=== PATIENT | male | born 1980 | race Caucasian/White ===

== ENCOUNTER 2021-04-17 09:27 | Outpatient (CLI) | payer OTHER | END 2021-04-17 09:28 | disposition home or self-care (01) | LOC: CSHLAB 09:27 | PROVIDERS: ATTEND Otolaryngology Plastic Surgery within the Head & Neck | DX: Z01.818 Encounter for other preprocedural examination (principal); R94.31 Abnormal electrocardiogram [ECG] [EKG] | CPT/HCPCS: 93005; 93010 ==

== ENCOUNTER 2021-04-22 09:05 | Observation (INO) | payer OTHER ==
[2021-04-16 16:37] VITALS: BMI 41.3
[2021-04-22] MEDS ORDERED: Lidocaine 1% MPF 2 ML VIAL ONE (10:35)
[2021-04-22] MEDS ORDERED: Oxymetazoline HCl 0.05% ( 15 ML ) ONE (10:50)
[2021-04-22] MEDS ORDERED: Acetaminophen 325 MG TAB PO PRN (11:58)
[2021-04-22] MEDS ORDERED: Ondansetron PF 4 MG/2 ML Vial IVP PRN (11:58)
[2021-04-22] MEDS ORDERED: D5 1/2 NS 1,000 ML IV SCH (12:00)
[2021-04-22] MEDS ORDERED: Acetaminophen W/ Codeine 5 ML UDCUP PO PRN (12:02)
[2021-04-22] MEDS ORDERED: SUGAMMADEX SODIUM 200 MG/2 ML VIAL ONE (12:04)
[2021-04-22] MEDS ORDERED: Midazolam HCl 2 mg/2 ml Vial ONE (12:05)
[2021-04-22] MEDS ORDERED: Ondansetron PF 4 MG/2 ML Vial ONE (12:05)
[2021-04-22] MEDS ORDERED: Rocuronium Bromide 10 MG/ML (10ML VIAL) ONE ×2 (12:05→13:52)
[2021-04-22] MEDS ORDERED: PROPOFOL 20 ML ONE ×3 (12:05→13:26)
[2021-04-22] MEDS ORDERED: Dexamethasone 20 MG/5 ML VIAL ONE (12:05)
[2021-04-22] MEDS ORDERED: Lidocaine 1% PF 5 ML VIAL ONE (12:05)
[2021-04-22] MEDS ORDERED: Fentanyl 250 MCG/5 ML VIAL ONE (12:05)
[2021-04-22] MEDS ORDERED: Propofol 1,000 MG/100 ML VIAL IV ONE (13:40)
[2021-04-22] MEDS ORDERED: Rocuronium Bromide 50 MG/5 ML VIAL IVP SCH (14:30)
[2021-04-22] MEDS ORDERED: fentaNYL Citrate-0.9 % NaCl/PF 100 ML IVPB SCH (14:30)
[2021-04-22 14:43] LABS: Actual Bicarbonate (HCO3a) 27.4 mEq/L (22-28); Base Excess (BEa) -2.3 mEq/L (-2.0 to +3.0); CO2 Tension 68.9 mmHg (35.0-45.0); Calcium, Ionized (arterial) 1.18 mmol/L (1.12-1.30); Carboxyhemoglobin (COHb) 0.4 gm% (0.0-3.0); O2 Tension (PaO2), arterial 75.7 mmHg (80.0-100.0); Puncture Site LRA; pH, Arterial 7.22 (7.35-7.45)
[2021-04-22] MEDS ORDERED: Rocuronium Bromide 10 MG/ML (10ML VIAL) IVP SCH (14:45)
[2021-04-22 14:46] LABS: ALV-art Gradient 551.175 mmHg (0-20)
[2021-04-22] MEDS: Propofol 1,000 MG/100 ML VIAL IV PRN ×4 (15:57→22:31)
[2021-04-22 16:05] LABS: Actual Bicarbonate (HCO3a) 23.6 mEq/L (22-28); Base Excess (BEa) -2.2 mEq/L (-2.0 to +3.0); CO2 Tension 44.4 mmHg (35.0-45.0); Calcium, Ionized (arterial) 1.16 mmol/L (1.12-1.30); Carboxyhemoglobin (COHb) 0.5 gm% (0.0-3.0); Hemoglobin (Hb) 15.3 g/dL (14.0-18.0); O2 Tension (PaO2), arterial 82.6 mmHg (80.0-100.0); Puncture Site LRA; pH, Arterial 7.34 (7.35-7.45)
[2021-04-22] MEDS ORDERED: Furosemide 40 MG/4 ML VIAL SLOW IVP SCH (16:30)
[2021-04-22 16:46] LABS: SARS-CoV-2 NAA Rapid Test DETECTED (NotDetected)
[2021-04-22] MEDS ORDERED: Lorazepam 2 MG/ML VIAL SLOW IVP PRN (17:17)
[2021-04-22] MEDS ORDERED: Lorazepam 2 MG/ML VIAL ONE (17:23)
[2021-04-22] MEDS ORDERED: MIDAZOLAM IVPB PRN (18:30)
[2021-04-22] MEDS ORDERED: SODIUM CHLORIDE 0.9% IVPB PRN (18:30)
[2021-04-22] MEDS: Dexamethasone 20 MG/5 ML VIAL SLOW IVP SCH (19:45)
[2021-04-22] MEDS: Furosemide 40 MG/4 ML VIAL SLOW IVP SCH (19:47)
[2021-04-23] MEDS: Propofol 1,000 MG/100 ML VIAL IV PRN ×4 (00:51→07:59)
[2021-04-23 06:49] LABS: #Monocytes 0.6 10x3/uL (0.0-1.1); #Neutrophils 16.3 10x3/uL (1.5-8.4); %Basophils 0.1 % (0.0-2.0); %Monocytes 3.5 % (0.0-10.0); Hemoglobin 14.2 g/dL (13.5-17.5); Mean Corpuscular HGB CONC 31.3 g/dL (32.0-36.0); Mean Corpuscular Hemoglobin 26.2 pg (27.0-33.0); Mean Corpuscular Volume 83.4 fl (81.2-95.1); Platelet Count 243 10x3/uL (150-450); RBC Distribution Width 16.1 % (11.5-14.5); Red Blood Cell (RBC) Count 5.43 10x6/uL (4.32-5.72); White Blood Cell (WBC) Count 18.1 10x3/uL (3.5-10.5)
[2021-04-23 06:56] LABS: ALT (SGPT) 33 U/L (8-55); AST (SGOT) 24 U/L (5-34); Albumin 3.9 g/dL (3.5-5.0); Alkaline Phosphatase 42 U/L (40-110); Anion Gap 17 mmol/L (10-20); BUN (Urea Nitrogen) 20 mg/dL (8.9-20.6); Bilirubin, Total 0.7 mg/dL (0.2-1.2); Calc. Creatinine Clearance 129 mL/min (70-130); Calcium 8.6 mg/dL (7.8-10.44); Carbon Dioxide 23 mmol/L (22-29); Chloride 103 mmol/L (98-107); Glucose 162 mg/dL (70-105); Magnesium 2.3 mg/dL (1.6-2.6); Phosphorus 4.6 mg/dL (2.3-4.7); Potassium 3.9 mmol/L (3.5-5.1); Protein, Total 6.9 g/dL (6.0-8.3); Sodium 139 mmol/L (136-145)
[2021-04-23 07:48] LABS: Actual Bicarbonate (HCO3a) 25.1 mEq/L (22-28); Base Excess (BEa) 0.2 mEq/L (-2.0 to +3.0); CO2 Tension 41.6 mmHg (35.0-45.0); Carboxyhemoglobin (COHb) 0.5 gm% (0.0-3.0); O2 Tension (PaO2), arterial 81.9 mmHg (80.0-100.0); Potassium - ABG Lab 3.8 mmol/L (3.70-5.30); Puncture Site LRA
[2021-04-23] MEDS: Dexamethasone 20 MG/5 ML VIAL SLOW IVP SCH ×2 (07:59→19:41)
[2021-04-23] MEDS: Furosemide 40 MG/4 ML VIAL SLOW IVP SCH (08:00)
[2021-04-23] MEDS ORDERED: Dexmedetomidine In 0.9 % NaCl 100 ML IVPB SCH (08:15)
[2021-04-23] MEDS: Pantoprazole 40 MG VIAL IVP SCH (09:12)
[2021-04-23] MEDS: Heparin 5,000 UNITS/ML VIAL SC SCH ×3 (09:12→19:41)
[2021-04-23] MEDS: Ipratropium/Albuterol Sulfate 4 GM AER IH SCH ×3 (14:32→22:55)
[2021-04-24 01:08] VITALS: TEMP 98.2
[2021-04-24] MEDS: Ipratropium/Albuterol Sulfate 4 GM AER IH SCH ×2 (02:52→07:12)
[2021-04-24 04:36] VITALS: BP 150/85
[2021-04-24 07:26] LABS: #Monocytes 0.8 10x3/uL (0.0-1.1); %Basophils 0.1 % (0.0-2.0); %Lymphocytes 11.5 % (18.0-47.0); %Monocytes 5.2 % (0.0-10.0); %Neutrophils 82.6 % (40.0-75.0); Hemoglobin 13.9 g/dL (13.5-17.5); Mean Corpuscular HGB CONC 31.4 g/dL (32.0-36.0); Mean Corpuscular Hemoglobin 26.3 pg (27.0-33.0); Mean Corpuscular Volume 83.9 fl (81.2-95.1); Mean Platelet Volume 10.9 fl (7.4-10.4); Platelet Count 231 10x3/uL (150-450); RBC Distribution Width 16.1 % (11.5-14.5); Red Blood Cell (RBC) Count 5.28 10x6/uL (4.32-5.72); White Blood Cell (WBC) Count 14.6 10x3/uL (3.5-10.5)
[2021-04-24 07:42] LABS: ALT (SGPT) 34 U/L (8-55); AST (SGOT) 41 U/L (5-34); Albumin 4.2 g/dL (3.5-5.0); Alkaline Phosphatase 41 U/L (40-110); Anion Gap 12 mmol/L (10-20); BUN (Urea Nitrogen) 22 mg/dL (8.9-20.6); Bilirubin, Total 0.9 mg/dL (0.2-1.2); Calc. Creatinine Clearance 173 mL/min (70-130); Carbon Dioxide 28 mmol/L (22-29); Chloride 104 mmol/L (98-107); Glucose 122 mg/dL (70-105); Magnesium 2.8 mg/dL (1.6-2.6); Potassium 3.9 mmol/L (3.5-5.1); Protein, Total 7.2 g/dL (6.0-8.3); Sodium 140 mmol/L (136-145)
[2021-04-24] MEDS: Dexamethasone 20 MG/5 ML VIAL SLOW IVP SCH (07:58)
[2021-04-24] MEDS: Pantoprazole 40 MG VIAL IVP SCH (07:58)
[2021-04-24] MEDS: Heparin 5,000 UNITS/ML VIAL SC SCH (08:00)
== END 2021-04-24 09:58 | disposition home or self-care (01) ==
LOC: CSHSDC 09:05 → CSHIMCU 13:30 → INTOOBSV 13:30
PROVIDERS: ADMIT Otolaryngology Plastic Surgery within the Head & Neck; ATTEND Otolaryngology Plastic Surgery within the Head & Neck
PROC: 0CTPXZZ Resection of Tonsils, External Approach (ICD-10-PCS; principal; 2021-04-22)
PROC: 0CTQ0ZZ Resection of Adenoids, Open Approach (ICD-10-PCS; 2021-04-22)
DX: J34.3 Hypertrophy of nasal turbinates (principal); J35.3 Hypertrophy of tonsils with hypertrophy of adenoids; G47.33 Obstructive sleep apnea (adult) (pediatric)
CPT/HCPCS: 36415; 36600; 71045; 80053; 82805; 83735; 84100; 85025; 88304; 88305; 94003; 94640; 94660; 96372; 96374; 96375; 96376; C9113; G0378; J1100; J1644; J1940; J2060; J2250; J2405; J2704; J3010; J7620; U0002